=== PATIENT | female | born 2000 | race African-American/Black ===

== ENCOUNTER → 2021-08-12 | Emergency (ER) | payer MEDICAID ==
[~2021-08-12] VITALS: Ht 165.1 cm; Wt 50.0 kg
[~2021-08-12] MED LIST: LORAZEPAM 0.5MG TABLET PO ONE; ONDANSETRON 4MG ODT PO STA
[2021-08-12 16:48] VITALS: BP 126/79
[2021-08-12 18:47] LABS: BASOPHILS % 0.8 % (0.0-2.0); EOSINOPHILS % 1.4 % (0.0-5.0); HEMATOCRIT. 40.8 % (36.0-48.0); LYMPHOCYTES % 44.2 % (20.0-50.0); MEAN CORPUSCULAR HEMOGLOBIN 27.9 pg (28.0-32.0); MEAN CORPUSCULAR VOLUME 87.4 fL (81.0-99.0); MEAN PLATELET VOLUME 7.6 fl (7.4-10.4); MONOCYTES % 9.7 % (2.0-8.0); NEUTROPHILS % 43.9 % (40.0-76.0); PLATELET 238 x1000/uL (130-400); RED BLOOD CELL COUNT 4.67 mill/uL (4.2-5.4); RED CELL DISTRIBUTION WIDTH 13.4 % (11.6-14.6)
[2021-08-12 18:55] LABS: CHLORIDE 108 mEq/L (98-107)
[2021-08-12 18:56] LABS: HCG SCREEN NEGATIVE
== END ==
LOC: ER 16:03
DX: R20.0 Anesthesia of skin (principal); J45.909 Unspecified asthma, uncomplicated
CPT/HCPCS: 36415; 80053; 84703; 85025; 99283; Q0162